=== PATIENT | female | born 1995 | race Caucasian/White ===

== ENCOUNTER 2016-12-02 20:09 | Emergency (ER) | payer OTHER ==
[~2016-12-02] VITALS: Ht 154.9 cm; Wt 58.0 kg
[2016-12-02 20:10] VITALS: BP 121/77; PULSE 72; RESP 16; TEMP 97.8; O2SAT 98
[2016-12-02] MEDS ORDERED: LIDOCAINE HCL 1% 50 ML VIAL INFIL ONE (21:45)
--- NOTE | 2016-12-02 21:50 | PD ---
HPI Chief Complaint: Skin Problem Time Seen by Provider: 21:40 Travel History International Travel<30 days: No Contact w/Intl Traveler<30days: No Traveled to known affect area: No History of Present Illness HPI 21-year-old female with history of no significant past medical issues, presents to the ER today because she states that she has a spot on her right leg that has been getting more swollen and painful, feels like it hurts so much that her right leg is giving out. She also had been bitten by her dog on the left leg several days ago. She denies any fevers or any other issues. Modifying Factors: None Associated Signs & Symptoms: Right leg area of pain and redness, dog bite to the left leg Risk Factors: None PFSH Past Medical History Medical History: Denies Significant Hx Tetanus Vaccination: Never Vaccinated Influenza Vaccination: No ?: Not Past Surgical History Surgical History: No Previous Surgery Social History Alcohol Use: No Tobacco Use: Yes Substance Use: No Allergies-Medications (Allergen,Severity, Reaction): Coded Allergies: No Known Allergies (Unverified , 12/02/16) Reported Meds & Prescriptions Reported Meds & Active Scripts Active Motrin Ib (Ibuprofen) 200 Mg Tab 600 Mg PO Q6H PRN Augmentin (Amoxicillin-Clavulanate) 500-125 mg Tab 500 Mg PO Q8H 7 Days Review of Systems Except as stated in HPI: all other systems reviewed are Neg Physical Exam Narrative GENERAL: Well-nourished, well-developed young female patient in no acute distress. SKIN: Warm and dry. Small abrasions notable to the chin on the left side with no surrounding erythema. There is a pustule on the right side with surrounding erythema, tenderness, and fluctuance measuring around 2 cm on the right chin area. HEAD: Normocephalic. EYES: No scleral icterus. No injection or drainage. NECK: Supple, trachea midline. CARDIOVASCULAR: Regular rate and rhythm without murmurs, gallops, or rubs. RESPIRATORY: Breath sounds equal bilaterally. No accessory muscle use. GASTROINTESTINAL: Abdomen soft, non-tender, nondistended. MUSCULOSKELETAL: No cyanosis, or edema. BACK: Nontender without obvious deformity. No CVA tenderness. EXTREMITIES: No clubbing, cyanosis, or edema. No joint tenderness, effusion, or edema noted. There is tenderness to the right medial orozco where the pustule previously prescribed is. No posterior calf tenderness. Neurovascularly intact. Data Data Last Documented VS Vital Signs Date Time Temp Pulse Resp B/P Pulse Ox O2 Delivery O2 Flow Rate FiO2 12/02/16 20:10 97.8 72 16 121/77 98 Room Air Orders Lidocaine 1% Inj (50 Ml) (Xylocaine 1% I (12/02/16 21:45) Rabies Immune Globulin Inj (Hyperrab S/D (12/02/16 23:00) Rabies Vaccine Chick Emb Inj (Rabavert I (12/02/16 23:00) MDM Medical Decision Making Medical Screen Exam Complete: Yes Emergency Medical Condition: Yes Medical Record Reviewed: Yes Differential Diagnosis Right chin cellulitis areas/abscess, left orozco dog bite Narrative Course Right leg abscess was drained by PA. Patient is put on antibiotics both for dog bite and for the abscess. She was bitten by a customer's dog and did not get any information and the dog, would not be able to track down the same dog, it is unknown whether the dog has any vaccinations. However, according to her, the dog was behaving normally except for being aggressive towards her. I have recommended rabies vaccination especially considering that this is an unknown dog. I have talked her about the fact that rabies in humans is a mortal disease. Patient states understanding but declines vaccination at this time. Wound care instructions were given. Follow-up with primary care physician as well. Return for any worsening in pain or new symptoms as needed. The plan has been discussed with her and she states understanding. Diagnosis Primary Impression: Abscess of right leg Additional Impression: Dog bite of calf Med/Other Pt SpecificInfo: Prescription(s) given Scripts Ibuprofen (Motrin Ib)200 Mg [id number] Mg PO Q6H PRN (PAIN SCALE 1 TO 10) #21 TAB Ref 0 Prov:Amina Santos MD 12/02/16 Amoxicillin-Clavulanate (Augmentin)500-125 mg [id number] Mg PO Q8H 7 Days Ref 0 Prov:Amina Santos MD 12/02/16 Disposition: 01 DISCHARGE HOME Condition: Stable Amina Santos MD Dec 02, 2016 21:50
--- NOTE | 2016-12-02 22:33 | PD ---
Physical Exam Time Seen by Provider: 22:32 Data Data Last Documented VS Vital Signs Date Time Temp Pulse Resp B/P Pulse Ox O2 Delivery O2 Flow Rate FiO2 12/02/16 20:10 97.8 72 16 121/77 98 Room Air Orders Lidocaine 1% Inj (50 Ml) (Xylocaine 1% I (12/02/16 21:45) MDM Medical Record Reviewed: Yes Supervised Visit with SILVINA: No Procedures Procedure Narrative INCISION AND DRAINAGE OF ABSCESS: The area was prepped and was sterilely draped. Topical ethyl chloride was used to anesthetize the area. The area was properly anesthetized. A number 11 scalpel was used to make a [0.5 cm incision across the area of the abscess. Cultures were obtained. The abscess was drained an irrigated with normal saline. Scripts No Active Prescriptions or Reported Meds Condition: Stable Alka Ayala Dec 02, 2016 22:33
[2016-12-02] MEDS ORDERED: AUGM500T7 PO (22:34)
[2016-12-02] MEDS ORDERED: MOTR200T4 PO (22:34)
[2016-12-02] MEDS ORDERED: AMOXICILLIN/CLAVULANATE K 500 MG TAB PO ONE (23:00)
[2016-12-02] MEDS ORDERED: RABIES IMMUNE GLOBULIN INJ 300 UNITS/2 ML VIAL IM ONE (23:00)
[2016-12-02] MEDS ORDERED: IBUPROFEN 600 MG TAB PO ONE (23:00)
[2016-12-02] MEDS ORDERED: RABIES VACCINE CHICK EMB INJ 2.5 UNITS/ML SYR IM ONE (23:00)
== END 2016-12-02 23:22 | disposition home or self-care (01) ==
LOC: NEPC 20:09
DX: L02.415 Cutaneous abscess of right lower limb (principal); S81.852A Open bite, left lower leg, initial encounter; W54.0XXA Bitten by dog, initial encounter; Z72.0 Tobacco use
CPT/HCPCS: 10060

== ENCOUNTER 2017-01-13 06:22 | Emergency (ER) | payer OTHER ==
[~2017-01-13] VITALS: Ht 154.9 cm; Wt 57.5 kg
[~2017-01-13 06:22] MED LIST: AUGM500T7 PO; MOTR200T4 PO
[2017-01-13 06:24] VITALS: BP 117/60; PULSE 78; RESP 16; TEMP 97.9; O2SAT 100
[2017-01-13] MEDS ORDERED: PENI500T PO (06:58)
[2017-01-13] MEDS ORDERED: IBUP-232 PO (06:58)
[2017-01-13] MEDS ORDERED: PERI0.126 SWISH-SPIT (06:58)
--- NOTE | 2017-01-13 06:58 | PD ---
HPI Chief Complaint: Oral / Dental Pain or Problem Time Seen by Provider: 06:56 Travel History International Travel<30 days: No Contact w/Intl Traveler<30days: No Traveled to known affect area: No History of Present Illness HPI 21-year-old female presents to emergency room for evaluation of dental pain. Patient states that she has had a bad tooth for an extended amount of time. She has seen a dentist. She was placed on oral antibiotics and provide pain control over a month ago and has appointment for periodontal surgeon for next month but states she cannot wait until then. She feels as though something needs to be done. Penis is a 10 out of 10, constant, throbbing. Patient; a new injuries. She has had no fever or chills. She has no other symptoms to report. PFSH Past Medical History Medical History: Denies Significant Hx Diminished Hearing: No ?: Not LMP: 12/23/16 Past Surgical History Surgical History: No Previous Surgery Social History Alcohol Use: Yes (OC) Tobacco Use: Yes Substance Use: No Allergies-Medications (Allergen,Severity, Reaction): Coded Allergies: No Known Allergies (Unverified , 01/13/17) Reported Meds & Prescriptions Reported Meds & Active Scripts Active Peridex Liq (Chlorhexidine Gluconate (Mouth) Liq) 0.12% Soln 15 Ml SWISH-SPIT BID 14 Days Ibuprofen 600 Mg Tab 600 Mg PO Q8HR PRN Penicillin V Potassium 500 Mg Tab 500 Mg PO Q6H 10 Days Motrin Ib (Ibuprofen) 200 Mg Tab 600 Mg PO Q6H PRN Augmentin (Amoxicillin-Clavulanate) 500-125 mg Tab 500 Mg PO Q8H 7 Days Review of Systems Except as stated in HPI: all other systems reviewed are Neg Physical Exam Narrative GENERAL: Well-nourished, well-developed female patient ambulatory no acute distress SKIN: Warm and dry. HEAD: Normocephalic. No erythema or edema EYES: No scleral icterus. No injection or drainage. DENTAL: No loose or chipped teeth. The right maxillary first molar is with a temporary filling but what appears to be a large cavity. There is significant interval erythema without any appreciable abscess. No malocclusion. NECK: Supple, trachea midline. No JVD or lymphadenopathy. CARDIOVASCULAR: Regular rate and rhythm without murmurs, gallops, or rubs. RESPIRATORY: Breath sounds equal bilaterally. No accessory muscle use. Data Data Last Documented VS Vital Signs Date Time Temp Pulse Resp B/P Pulse Ox O2 Delivery O2 Flow Rate FiO2 01/13/17 06:24 97.9 78 16 117/60 100 Room Air Orders Ketorolac Inj (Toradol Inj) (01/13/17 07:00) MDM Medical Decision Making Medical Screen Exam Complete: Yes Emergency Medical Condition: Yes Medical Record Reviewed: Yes Differential Diagnosis Dental caries versus pulpitis versus gingivitis versus periodontal disease Narrative Course 21-year-old female presents to emergency room for evaluation of tooth pain. Patient is treated for pain and will be started on oral antibiotics. I have encouraged her to contact the surgeon disease versus possibility is seen in follow-up. She agrees to return immediately if any acute worsening of symptoms. 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 Additional Impressions: Pain due to dental caries Gingivitis Referrals: Dentist Patient Instructions: General Instructions Departure Forms: Tests/Procedures, Work Release Enter return to work date: Jan 15, 2017 Additional Instructions: Keep your appointment with the periodontal surgeon Follow-up with her primary care provider Return immediately to the emergency department with any acute worsening of symptoms Med/Other Pt SpecificInfo: Prescription(s) given Scripts Chlorhexidine Gluconate (Mouth) Liq (Peridex Liq)0.12% Soln15 Ml SWISH-SPIT BID 14 Days Ref 0 Prov:Alka Ayala 01/13/17 Ibuprofen 600 Mg [id number] Mg PO Q8HR PRN (PAIN) #30 TAB Ref 0 Prov:Alka Ayala 01/13/17 Penicillin V Potassium 500 Mg Cal347 Mg PO Q6H 10 Days Ref 0 Prov:Alka Ayala 01/13/17 Disposition: 01 DISCHARGE HOME Condition: Stable Alka Ayala Jan 13, 2017 06:58
[2017-01-13] MEDS ORDERED: KETOROLAC TROMETHAMINE 60 MG/2 ML (IM) VIAL IM ONE (07:00)
== END 2017-01-13 08:01 | disposition home or self-care (01) ==
LOC: NEPB 06:22
DX: K00.1 Supernumerary teeth (principal); K02.9 Dental caries, unspecified; K05.10 Chronic gingivitis, plaque induced; Z72.0 Tobacco use
CPT/HCPCS: 96372; 99282; J1885

== ENCOUNTER 2017-01-26 00:05 | Emergency (ER) | payer OTHER ==
[~2017-01-26] VITALS: Ht 154.9 cm; Wt 56.0 kg
[~2017-01-26 00:05] MED LIST changes: +IBUP-232 PO; +PENI500T PO; +PERI0.126 SWISH-SPIT
[2017-01-26 00:10] VITALS: BP 141/76; PULSE 64; RESP 14; TEMP 98; O2SAT 96
--- NOTE | 2017-01-26 01:22 | PD ---
HPI Chief Complaint: Back/ Neck Pain or Injury Time Seen by Provider: 01:20 Travel History International Travel<30 days: No Contact w/Intl Traveler<30days: No Traveled to known affect area: No History of Present Illness HPI Patient comes in complaining of low to mid back pain ongoing for approximately a week. Patient denies any trauma, loss change in bowel or bladder, numbness or tingling anywhere, fevers, vaginal discharge, , numbness or tingling anywhere, chest pain, shortness breath, abdominal pain, or IV drug use. Patient states she did taking ibuprofen with minimal to no relief. Pain is worse with certain movement. PFSH Past Medical History Medical History: Denies Significant Hx Diminished Hearing: No ?: Not LMP: LAST WEEK Past Surgical History Surgical History: No Previous Surgery Social History Alcohol Use: Yes (OC) Tobacco Use: Yes (0.5-1 PPD) Substance Use: No Allergies-Medications (Allergen,Severity, Reaction): Coded Allergies: No Known Allergies (Unverified , 01/26/17) Reported Meds & Prescriptions Reported Meds & Active Scripts Active Naprosyn (Naproxen) 500 Mg Tab 500 Mg PO Q12HR PRN Robaxin (Methocarbamol) 500 Mg Tab 500 Mg PO Q8HR PRN Review of Systems Except as stated in HPI: all other systems reviewed are Neg Physical Exam Narrative GENERAL: Well-developed, well nourished, in no acute distress, and non-ill appearing. SKIN: Warm and dry. HEAD: Atraumatic. Normocephalic. EYES: Pupils equal and round. EOMI. No scleral icterus. No injection or drainage. ENT: No nasal bleeding or discharge. Mucous membranes pink and moist. NECK: Trachea midline. Supple. No nuclear rigidity. CARDIOVASCULAR: Dorsal pulses 2+, intact, and equal bilaterally. No pedal edema. RESPIRATORY: No accessory muscle use. No respiratory distress. GASTROINTESTINAL: Abdomen soft, non-tender, nondistended. Hepatic and splenic margins not palpable. No pulsatile mass. MUSCULOSKELETAL: No obvious deformities. No clubbing. No cyanosis. No edema. Full range of motion. No point tenderness or crepitus over midline throughout spinal column. Patient reports tenderness. She will spinal muscles of the lower to mid spine. Straight leg test negative bilaterally. NEUROLOGICAL: Awake and alert. No obvious cranial nerve deficits. Motor grossly within normal limits. Normal speech. PSYCHIATRIC: Appropriate mood and affect; insight and judgment normal. Data Data Last Documented VS Vital Signs Date Time Temp Pulse Resp B/P Pulse Ox O2 Delivery O2 Flow Rate FiO2 01/26/17 00:10 98.0 64 14 141/76 96 Room Air Orders Urinalysis - C+S If Indicated (01/26/17 01:06) Ed Urine Pregnancytest Poc (01/26/17 01:06) Urine Culture (01/26/17 01:15) Labs Laboratory Tests Test 01/26/17 01:15 Urine Color YELLOW Urine Turbidity HAZY Urine pH 5.5 Urine Specific [place] 1.029 Urine Protein 30 mg/dL Urine Glucose (UA) NEG mg/dL Urine Ketones 80 mg/dL Urine Occult Blood NEG Urine Nitrite NEG Urine Bilirubin NEG Urine Urobilinogen LESS THAN 2.0 MG/DL Urine Leukocyte Esterase SMALL Urine RBC 4 /hpf Urine WBC 8 /hpf Urine Squamous Epithelial 23 /hpf Cells Urine Mucus MANY /lpf Microscopic Urinalysis Comment CULTURE INDICATED MDM Medical Decision Making Medical Screen Exam Complete: Yes Emergency Medical Condition: Yes Differential Diagnosis UTI, musculoskeletal pain, back strain, fracture, other Narrative Course The patient presented complaining of back pain. There was no history of recent fall or trauma. There was no evidence to support genitourinary etiology. I suspect urine is contaminated and will await culture prior to treating. There is also no evidence to suggest vascular pathology such as AAA dissection. No fevers or other evidence to suspect infectious processes, abscess, osteomyelitis etc. The patients neurological exam is normal with normal motor and sensory. There is no saddle paresthesias reported and no bowel or bladder incontinence or retention. I suspect the pain is mechanical in nature. Clinical suspicion, plan of care and management was discussed with the patient. The patient was instructed to follow up with their health care provider. The patient was also instructed to return if the pain worsened, changed, or developed weakness or bowel or bladder trouble. The patient agreed with plan. Patient in no obvious distress upon re-evaluation. All pertinent laboratory result(s) discussed with patient. Patient was asked if they wanted to speak to my attending, which the patient did not wish to do at this time. Any questions/ concerns in reference to patient diagnosis/condition discussed and clarified prior to patient's discharge. Reinforced sheer importance of close follow up with patient's primary physician or primary care clinic. Instructed patient to return to ED immediately, if symptoms return/worsen. Pt showed understanding of above instructions. Further instructions and recommendations were detailed in discharge paperwork. Pt ambulated without difficulty out of ED at discharge. Diagnosis Primary Impression: Back pain Qualified Code: M54.9 - Back pain, unspecified back location, unspecified back pain laterality, unspecified chronicity Referrals: [facility] Patient Instructions: Back Pain (ED), General Instructions Departure Forms: Work Release Enter return to work date: Jan 27, 2017 Additional Instructions: Follow-up with your primary care physician this week for evaluation. Take all medication as prescribed. Return to the emergency department if symptoms get worse. Med/Other Pt SpecificInfo: Prescription(s) given Scripts Naproxen (Naprosyn)500 Mg Ese137 Mg PO Q12HR PRN (PAIN SCALE 1 TO 10) #12 TAB Ref 0 Prov:He Escobedo MD 01/26/17 Methocarbamol (Robaxin)500 Mg [id number] Mg PO Q8HR PRN (MUSCLE PAIN) #12 TAB Ref 0 Prov:He Escobedo MD 01/26/17 Disposition: 01 DISCHARGE HOME Condition: Stable Brown Wilkinson Jan 26, 2017 01:22
[2017-01-26 01:48] LABS: BLOOD, URINE NEG (NEG); COMMENT (UR) CULTURE INDICATED; CULTURE IF INDICATED CULTURE INDICATED; GLUCOSE,URINE NEG (NEG); KETONE, URINE 80 mg/dL (NEG); MUCUS URINE MANY /lpf (OCC); NITRITE,URINE NEG (NEG); PH, URINE 5.5 (5.0-8.5); SQUAMOUS EPITHELIAL CELL URINE 23 /hpf (0-5); URINE COLOR YELLOW (YELLW/STRAW)
[2017-01-26] MEDS ORDERED: NAPR500 PO (02:13)
[2017-01-26] MEDS ORDERED: ROBA500T PO (02:13)
== END 2017-01-26 02:34 | disposition home or self-care (01) ==
LOC: NEPB 00:05
DX: M54.9 Dorsalgia, unspecified (principal); F17.210 Nicotine dependence, cigarettes, uncomplicated
CPT/HCPCS: 81001; 84703; 87086; 99283